=== PATIENT | female | born 1950 | race Hispanic/Latino ===

== ENCOUNTER → 2018-07-24 | Outpatient (CLI) | payer MEDICARE | END | disposition home or self-care (01) | LOC: SHCH 14:13 | PROVIDERS: ATTEND Internal Medicine Cardiovascular Disease | DX: I11.9 Hypertensive heart disease without heart failure (principal) | CPT/HCPCS: 93306 ==

== ENCOUNTER → 2018-08-16 | Outpatient (CLI) | payer MEDICARE ==
[~2018-08-16] VITALS: Ht 139.7 cm; Wt 78.9 kg
[~2018-08-16] MED LIST: REGADENOSON 0.4 MG/5 ML PF SYG IVP SCH
== END | disposition home or self-care (01) ==
LOC: SHCH 08:17
PROVIDERS: ATTEND Internal Medicine Cardiovascular Disease
DX: I25.9 Chronic ischemic heart disease, unspecified (principal)
CPT/HCPCS: 78452; 93017; 96374; A9500 ×2; J2785

== ENCOUNTER 2023-04-15 20:25 | Emergency (ER) | payer MEDICARE ==
[~2023-04-15] VITALS: Ht 152.4 cm; Wt 70.3 kg
[2023-04-15] MEDS ORDERED: CYCLOBENZAPRINE HCL 10 MG TABLET PO ONE (21:30)
[2023-04-15] MEDS ORDERED: IBUPROFEN 800 MG TAB PO ONE (21:30)
[2023-04-15] MEDS ORDERED: IBUP-1493 PO (23:04)
[2023-04-15] MEDS ORDERED: CYCL-309 PO (23:04)
[2023-04-15 23:32] VITALS: BP 131/79; PULSE 93; RESP 20; O2SAT 97
== END 2023-04-15 23:41 | disposition home or self-care (01) ==
LOC: EDH 20:25
DX: M79.631 Pain in right forearm (principal); M62.421 Contracture of muscle, right upper arm; I10 Essential (primary) hypertension; Z86.73 Personal history of transient ischemic attack (TIA), and cerebral infarction without residual deficits
CPT/HCPCS: 36415; 73060; 73090; 82550; 84484; 93005

== ENCOUNTER 2023-06-10 07:33 | Emergency (ER) | payer MEDICARE ==
[~2023-06-10] VITALS: Ht 165.1 cm; Wt 72.6 kg
[~2023-06-10 07:33] MED LIST changes: +CYCL-309 PO; +IBUP-1493 PO; -REGADENOSON 0.4 MG/5 ML PF SYG IVP SCH
[2023-06-10 10:41] VITALS: BP 148/74; PULSE 88; RESP 18; O2SAT 98
== END 2023-06-10 10:43 | disposition home or self-care (01) ==
LOC: EDH 07:33
DX: K94.23 Gastrostomy malfunction (principal); E11.9 Type 2 diabetes mellitus without complications; I10 Essential (primary) hypertension; Z79.1 Long term (current) use of non-steroidal anti-inflammatories (NSAID); Z86.73 Personal history of transient ischemic attack (TIA), and cerebral infarction without residual deficits